=== PATIENT | female | born 1950 | race Caucasian/White ===

== ENCOUNTER 2016-08-12 10:00 | Emergency (ER) | payer MEDICARE, OTHER ==
[2016-08-12 10:34] LABS: BASOPHILS % 0.5 (0.0-1.5); EOSINOPHILS % 5.1 % (0.0-6.8); LYMPHOCYTES # 1.6 # k/uL (0.6-4.0); MEAN CORPUSCULAR HEMOGLOBIN 25.7 pg (28.0-34.0); MONOCYTES # 0.4 # k/uL (0.0-0.9); NEUTROPHILS # 4.3 # k/uL (1.4-7.7)
--- NOTE | 2016-08-12 10:34 | ED Physician Documentation ---
Lower Extremity Problem - HISTORIAN Historian: patient - HPI Stated Complaint: right lower extremity pain Chief Complaint: Lower Extremity Problem Location of Injury: R knee Timing: still present Recent Injury: No Quality: pain Associated Symptoms: denies: chest pain, shortness of breath Further Comments: yes (66 yo female presents with right posterior knee pain that started last night. Increased pain with ambulation. No recent injury. No swelling in leg. Sent by PCP for check. No chest pain. No SOA. No previous VTE. No recent surgeries or hospitalizations or long immobilizations) - ROS CONST: no problems MS/SKIN/LYMPH: leg pain (right posterior knee) GI/: none NERUO/PSYCH: denies: headache, difficulty walking, dizziness - PAST HX Past History: other (diabetes, osteoarthritis) PE Risk Factors: other (obese) Allergies/Adverse Reactions: Allergies Allergy/AdvReac Type Severity Reaction Status Date / Time doxycycline calcium AdvReac Unknown Rash Verified 05/25/16 16:34 [From Vibramycin] doxycycline hyclate AdvReac Unknown Rash Verified 05/25/16 16:34 [From Vibramycin] doxycycline monohydrate AdvReac Unknown Rash Verified 05/25/16 16:34 [From Vibramycin] Penicillins AdvReac Rash Verified 05/25/16 16:34 Home Medications: Ambulatory Orders Medication Instructions Recorded Meloxicam [Mobic] 7.5 mg PO DAILY PRN 05/25/16 Metformin HCl [Metformin HCl ER] 1,000 mg PO DAILY 05/25/16 gliPIZIDE [Glucotrol] 5 mg PO 0730 05/25/16 - SOCIAL HX Smoking History: non-smoker Alcohol Use: none Drug Use: none - FAMILY HX Family History: none - VITAL SIGNS Vital Signs: Vital Signs Temp Pulse Resp BP Pulse Ox 143/72 05/25/16 17:55 - REVIEWED ASSESSMENTS Nursing Assessment Reviewed: Yes Vitals Reviewed: Yes Progress - Progress Progress: d-dimer not elevated. Most likely etiology of pain is that of arthritis as patient says she has had this same issue in the past and has been recommended to have knee replacement but she does not want to do this. REcommend follow up with PCP ED Results Lab/Radiology - Lab Results Lab Results: Lab Results 08/12/16 08/12/16 08/12/16 10:25 10:25 10:25 WBC 6.80 K/ul K/ul (4.00-12.00) RBC 4.18 M/ul M/ul (3.90-5.20) Hgb 10.8 g/dL L g/dL (12.0-16.0) Hct 34.0 % L % (34.5-46.5) MCV 81.2 fl fl (80.0-100.0) MCH 25.7 pg L pg (28.0-34.0) MCHC 31.7 g/dL g/dL (30.0-36.0) RDW 14.1 % % (11.3-14.3) Plt Count 333 K/mm3 K/mm3 (130-400) Neut % (Auto) 62.8 % % (39.0-79.0) Lymph % (Auto) 24.2 % % (16.0-50.0) [place] % (Auto) 6.0 % % (0.0-11.0) Eos % (Auto) 5.1 % % (0.0-6.8) Baso % (Auto) 0.5 (0.0-1.5) Neut # 4.3 # k/uL # k/uL (1.4-7.7) Lymph # 1.6 # k/uL # k/uL (0.6-4.0) [place] # 0.4 # k/uL # k/uL (0.0-0.9) Eos # 0.4 # k/uL # k/uL (0.0-0.6) Baso # 0.0 # k/uL # k/uL (0.0-0.5) Reactive Lymphs % 1.3 % % (0.0-5.0) Reactive Lymphs # 0.1 # k/uL # k/uL (0.0-0.8) D-Dimer 458 ng/mL ng/mL (6.0-682) Sodium 136 mmol/L mmol/L (136-145) Potassium 3.5 mmol/L mmol/L (3.5-5.0) Chloride 103 mmol/L mmol/L (98-110) Carbon Dioxide 29 mmol/L mmol/L (20-32) BUN 19 mg/dL mg/dL (10-26) Creatinine 0.6 mg/dL mg/dL (0.4-1.5) Est GFR ( Amer) > 60 (60 - ) Est GFR (Non-Af Amer) > 60 (60 - ) Glucose 159 mg/dL H mg/dL (70-99) Calcium 9.2 mg/dL mg/dL (8.5-10.5) Total Bilirubin 0.3 mg/dL mg/dL (0.2-1.2) AST 22 U/L U/L (0-41) ALT 20 U/L U/L (0-45) Alkaline Phosphatase 45 U/L L U/L (46-116) Total Protein 6.9 g/dL g/dL (6.0-8.5) Albumin 4.2 g/dL g/dL (3.0-5.5) - Orders Orders: ED Orders Category Date Time Status CBC/PLATELET/DIFF Routine Lab 08/12/16 10:25 Completed CMP [CMP] Routine Lab 08/12/16 10:25 Completed D DIMER Stat Lab 08/12/16 10:25 Completed Lower Extremity Problem - EXAM General Appearance: no distress Hips: bilateral hip: non-tender, normal inspection, normal range of motion Legs: bilateral: non-tender, normal inspection, normal range of motion Knees: right: bone tenderness, pain, soft tissue tenderness, other (Negative Skip's sign), left: non-tender, normal range of motion, bilateral: normal inspection, no evidence of injury Neuro/Tendon: normal sensation, normal motor functions EENT: eye inspection normal, ENT inspection normal, LEXI CVS: reg rate & rhythm JOINT: joints nml, nml ROM, painful (painful to bear weight) NEURO/PSYCH: oriented X3, motor nml SKIN: warm/dry Discharge Clincal Impression: Osteoarthritis Qualifiers: Osteoarthritis location: knee Osteoarthritis type: primary Laterality: right Qualified Code(s): M17.11 - Unilateral primary osteoarthritis, right knee Additional Instructions: Follow up with your PCP in 3-5 days for continued care of your chronic medical needs Home Medications: Ambulatory Orders Meloxicam [Mobic] 7.5 mg PO DAILY PRN 05/25/16 Metformin HCl [Metformin HCl ER] 1,000 mg PO DAILY 05/25/16 gliPIZIDE [Glucotrol] 5 mg PO 0730 05/25/16 Condition: Good Disposition: HOME, SELF-CARE Decision to Admit: NO Decision Time: 11:22
[2016-08-12 10:51] LABS: eGFR (African) > 60; eGFR (Non-African) > 60
[2016-08-12 17:15] VITALS: BP 168/79
== END 2016-08-12 11:45 | disposition home or self-care (01) ==
LOC: ED 10:00
DX: M17.11 Unilateral primary osteoarthritis, right knee (principal)
CPT/HCPCS: 36415; 80053; 85025; 85379; 99282

== ENCOUNTER 2016-08-25 14:33 | Outpatient (CLI) | payer MEDICARE, OTHER ==
[2016-08-25 15:27] LABS: eGFR (African) > 60; eGFR (Non-African) > 60
== END 2016-08-25 14:35 ==
LOC: LAB 14:33
PROVIDERS: ATTEND Family Medicine
DX: E11.9 Type 2 diabetes mellitus without complications (principal)
CPT/HCPCS: 36415; 80053; 80061; 83036

== ENCOUNTER 2016-10-20 14:20 | Outpatient (CLI) | payer MEDICARE, OTHER ==
--- NOTE | 2016-10-21 18:37 | Diagnostic Imaging Report ---
JARAD SHEA [facility] [address] [facility] [address] [address] Report Submission Date: Oct 20, 2016 3:24:57 PM CDT Patient Study Name: YULI SALDANA Date: Oct 20, 2016 2:41:50 PM CDT Modality Type: CR Gender: F Description: SPINE : 46 Institution: [facility] Physician: JARAD SHEA Cervical spine 4 views Clinical history arm and neck pain Technique AP lateral open mouth and swimmer's Findings: The C1/C2 articulation shows degenerative arthritis but is otherwise within normal limits. There is disc space narrowing at all cervical levels. Posterior facet joint degenerative arthritis is present throughout the cervical spine. There is no prevertebral soft tissue swelling or evidence of fracture. Minimal anterior subluxation of C2 on C3 is present. The normal cervical curvature show straightening. Impression: Extensive cervical spondylosis. No acute cervical spine pathology Electronically signed on Oct 20, 2016 3:24:57 PM CDT by: Xavi MOYER
== END 2016-10-20 14:22 ==
LOC: RAD 14:20
PROVIDERS: ATTEND Family Medicine
DX: M54.2 Cervicalgia (principal)
CPT/HCPCS: 72040

== ENCOUNTER 2016-12-22 15:48 | Outpatient (CLI) | payer OTHER | END 2016-12-22 15:50 | LOC: LAB 15:48 | PROVIDERS: ATTEND Family Medicine | DX: E11.9 Type 2 diabetes mellitus without complications (principal) | CPT/HCPCS: 83036 ==

== ENCOUNTER 2017-01-03 12:18 | Outpatient (CLI) | payer OTHER ==
--- NOTE | 2017-01-04 10:08 | HISTORY AND PHYSICAL REPORT ---
REFERRING PHYSICIAN: Dr. Polly Persaud Dear Polly: HISTORY OF PRESENT ILLNESS: I had the opportunity of seeing Sabrina Santos today as an outpatient in clinic. As you are aware, Sabrina is a very nice 66-year-old white female who awoke approximately 4 months ago with neck and left-sided arm pain. She complains of pain in the shoulder and parascapular area with pain, numbness, and tingling down the left arm. She says that she has been unable to use the left arm because any use of the arm hurts. She also complains of some right- sided shoulder pain; however, the left is much worse and she is clearly having some shoulder dysfunction as well. She complains of numbness and tingling from the upper arm to the forearm, wrist, and hand. She says the left arm is weak. She denies pain in the right arm or lower extremities. She says she has chronic shoulder pain as well. She denies any incontinence of bowel or bladder. She denies symptoms of neurogenic claudication. MRI done in the open scanner at [facility] reveals a moderate degree of spinal stenosis at C4-C5 and C5-C6 and C6-C7 and multi-level degenerative disk disease. PAST MEDICAL HISTORY: 1. Nose or sinus problems. 2. Multiple TIAs. 3. An irregular heartbeat. 4. History of hepatitis C that patient reports is currently in remission. 5. Diabetes. PAST SURGICAL HISTORY: 1. Gallbladder surgery. 2. Complete hysterectomy. CURRENT MEDICATIONS: 1. Triamcinolone acetonide cream b.i.d. 2. Gabapentin 300 mg at bedtime. 3. Diclofenac 50 mg t.i.d. 4. Flonase 50 mcg spray, 2 sprays in each nostril. 5. Glipizide 5 mg b.i.d. 6. Metformin 500 mg b.i.d. ALLERGIES: 1. Penicillin. 2. Vibramycin. SOCIAL HISTORY: Patient quit smoking in 2016. She denies alcohol use. She reports some recreational drug use of marijuana in 1965 and none since then. Patient is . She has 5 children. She lives alone. She worked as a housewife. She went to school through the 12th grade. She is not currently employed. FAMILY HISTORY: The patient's father suffered from a stroke. The patient's mother had tuberculosis. Patient had a sibling with diabetes and cancer. REVIEW OF SYSTEMS: Positive for weight gain, night sweats, irregular heartbeats, swelling of the hands and feet, shortness of breath, and diarrhea. TREATMENTS FOR THE CURRENT PAIN PROBLEM: Patient denies any kind of surgery. She does report injections to the low back in the past. She did do physical therapy which did not give her any help. She denies chiropractic or osteopathic manipulation, TENS unit, biofeedback, acupuncture, and massage therapy. PHYSICAL EXAMINATION: General: This is a well-nourished, moderately obese white female in no apparent distress. Vital Signs: BP: 142/70, P: 68, R: 20, oxygen saturation is 98% on room air. General: The patient is well nourished, well developed, and in no apparent distress. Awake, alert, and oriented. HEENT: Pupils are equal, round, and reactive to light and accommodation. Extraocular movements intact. No facial droop. Neck: There is full range of motion of the cervical spine. No evidence of adenopathy. Thyroid is nontender, no enlarged. Carotids are without bruits. Chest: Clear to auscultation bilaterally. Normal. Chest excursion. Heart: Regular rate and rhythm without murmur. Abdomen: Benign. Normoactive bowel sounds. Motor/sensory: Intact in the upper and lower extremities. Moves all extremities freely. Back: There are normal cervical, thoracic and lumbar curvatures. There are negative sacroiliac joint findings bilaterally. No evidence of pain or tenderness over the facet joints. Negative piriformis bilaterally. Negative straight leg raise. No evidence of dermatomal weakness or numbness in the lower extremities. Bilateral negative femoral nerve stretch. Patellar tendons are 2+ and equal bilaterally. ASSESSMENT: 1. C4-C5, C5-C6, and C6-C7 cervical spinal stenosis. Plan for a left cervical epidural steroid injection today under fluoroscopy. 2. Likely left-sided rotator cuff tear with symptoms localized in the supraspinatus tendon. We will order an MRI at [facility] of the left rotator cuff. 3. I will have her follow up with me next month. Dr. Persaud, thank you very much for allowing me to take part in the care of this nice lady. cc: Dr. Polly MOYER
--- NOTE | 2017-01-04 10:35 | CERVICAL ESI WITH FLUORO ---
PROCEDURE PERFORMED: C6-C7 epidural steroid injection with fluoroscopic guidance. DESCRIPTION OF PROCEDURE: The risks and benefits were discussed with the patient, including the risks of infection, bleeding, nerve injury including paralysis, and headache. Furthermore , I discussed the risk of steroid exposure causing hyperglycemia, hypertension, osteoporosis, or increased infectious risks. The patient understood these risks and agreed to proceed. Consent was obtained. The patient was placed prone on the fluoroscopy table with a pillow underneath the chest to afford slight anterior flexion of the cervical spine. The patient' s back of the neck was cleaned and a sterile drape was applied. A 20-gauge thin-wall Tuohy epidural needle was inserted with a left paramedian approach at the C6-C7 interspace level. The position of the needle was verified with AP and lateral fluoroscopic views. The needle was advanced with a normal saline uoio-la-juecfuwfsp technique until [id number] was obtained. On obtaining ccsu-la-whauejxzes to normal saline it was verified that there was no aspiration of CSF or blood. At this point, Omnipaque 240 myelogram dye was injected into the cervical epidural space. It was verified with fluoroscopic views that the dye was located within the epidural space in the desired distribution. Triamcinolone acetate and 1% lidocaine was injected into the cervical epidural space. The stylet was replaced in the needle and the needle was removed from the neck. The neck was cleaned and a bandage was applied over the injection site. The patient tolerated the procedure well and was monitored afterwards for a total of 20 minutes during which time the vital signs remained stable and no adverse sequelae were experienced. The patient was discharged home in good condition. Prior to discharge the patient was given discharge instructions. ASSESSMENT: 1. C4-C5, C5-C6, C6-C7 stenosis. 2. Left rotator cuff pain. 3. Left upper extremity radiculitis. PLAN: We will obtain an MRI study of the left shoulder as well, as I believe she has a supraspinatus tear. FOLLOW UP: Return to Clinic if problems develop or worsen. cc: Dr. Polly MOYER
== END 2017-01-03 12:20 ==
LOC: OUT 12:18
PROVIDERS: ATTEND Anesthesiology Pain Medicine
DX: M48.02 Spinal stenosis, cervical region (principal); M25.512 Pain in left shoulder; M54.10 Radiculopathy, site unspecified
CPT/HCPCS: 99214; G0463; J3301; Q9966

== ENCOUNTER 2017-01-19 15:53 | Outpatient (CLI) | payer OTHER ==
[2017-01-19 16:27] LABS: BASOPHILS % 0.4 (0.0-1.5); EOSINOPHILS % 3.7 % (0.0-6.8); MEAN CORPUSCULAR HEMOGLOBIN 25.9 pg (28.0-34.0); MEAN CORPUSCULAR VOLUME 82.6 fl (80.0-100.0); MONOCYTES % 5.1 % (0.0-11.0); NEUTROPHILS # 7.1 # k/uL (1.4-7.7)
[2017-01-19 16:34] LABS: eGFR (African) > 60; eGFR (Non-African) > 60
== END 2017-01-19 15:54 ==
LOC: LAB 15:53
PROVIDERS: ATTEND Family Medicine
DX: R60.0 Localized edema (principal); N39.46 Mixed incontinence
CPT/HCPCS: 36415; 80053; 83880; 84443; 85025; 87086

== ENCOUNTER 2017-02-01 13:10 | Outpatient (CLI) | payer OTHER | END 2017-02-01 13:11 | LOC: CARD 13:10 | PROVIDERS: ATTEND Internal Medicine Cardiovascular Disease | DX: R07.9 Chest pain, unspecified (principal) ==

== ENCOUNTER 2017-02-04 09:53 | Outpatient (CLI) | payer OTHER ==
[~2017-02-04 09:53] MED LIST: BUPIVACAINE HCL/PF 2.5 MG/ML 10ML VIAL IV ONE; TRIAMCINOLONE ACETONID 40MG/ML VIAL ONE
--- NOTE | 2017-02-07 10:09 | SHOULDER JOINT INJECT FLOURO ---
REFERRING PHYSICIAN: Dr. Polly Persaud SUBJECTIVE: I had the opportunity of following up with Sabrina Santos today as an outpatient at [facility]. This is a delightful 66-year- old white female who I saw for cervicalgia and neck pain and left parascapular pain, numbness and tingling down the left arm. She has had complete relief of her neck and upper extremity pain and parascapular symptoms following an injection, except she continues with left shoulder pain. I thought at that point when I examined her that she had a rotator cuff tear and her MRI comes back positive for a partial tear of her supraspinatus tendon. She is also complaining not of just shoulder pain but symptoms of back and bilateral lower extremity pain, symptoms consistent with neurogenic claudication and spinal stenosis. She has had previous imaging many years ago but she is not sure where this was done and at this point, she is complaining of bilateral lower extremity pain and symptoms consistent with spinal stenosis. PLAN: At this point I am going to place a palliative left shoulder joint injection and have her scheduled for a follow up with me next month and follow up with Dr. Rolle regarding the rotator cuff tear. We will consider an lumbar epidural steroid injection (LESI) of her lumbar spine next month at [facility]. PROCEDURE: Left shoulder joint injection with fluoroscopic guidance. DESCRIPTION OF PROCEDURE: The risks and benefits of the injection were discussed with the patient, including the risks of infection, bleeding, and nerve injury. Furthermore, I discussed the risk of steroid exposure causing hyperglycemia, hypertension, osteoporosis, or increased infectious risks. The patient understood these risks and agreed to proceed. Consent was obtained. The patient was placed in the prone position on the fluoroscopy table. The skin overlying the posterior shoulder was cleaned. An AP fluoroscopic view of the left shoulder joint was obtained. A 23-gauge, 3 inch Quickie-tip spinal needle was inserted under direct fluoroscopic guidance from a posterior approach until the needle contacted the head of the humerus at the shoulder joint. It was verified that there was no aspiration of fluid or blood. Triamcinolone acetate diluted in 0.25% bupivacaine was subsequently injected. The stylette was replaced in the needle and the needle was removed from the shoulder joint. The skin was cleaned and a bandage was applied over the injection site. ASSESSMENT: FOLLOW UP: cc: Dr. Polly MOYER
== END 2017-02-04 09:54 ==
LOC: OUT 09:53
PROVIDERS: ATTEND Anesthesiology Pain Medicine
DX: M75.112 Incomplete rotator cuff tear or rupture of left shoulder, not specified as traumatic (principal); M48.00 Spinal stenosis, site unspecified; M25.512 Pain in left shoulder; R20.2 Paresthesia of skin; M54.2 Cervicalgia
CPT/HCPCS: 20611; 99213; G0463; J3301; J3490

== ENCOUNTER → 2017-03-10 | Outpatient (CLI) | payer OTHER ==
[2017-03-10 15:11] LABS: eGFR (African) > 60; eGFR (Non-African) > 60
== END ==
LOC: LAB 14:05
PROVIDERS: ATTEND Family Medicine
DX: R10.11 Right upper quadrant pain (principal); Z86.19 Personal history of other infectious and parasitic diseases; M54.5 Low back pain
CPT/HCPCS: 36415; 80053; 87086; 87186; 87522

== ENCOUNTER 2017-03-15 12:15 | Outpatient (CLI) | payer OTHER | END 2017-03-15 12:16 | LOC: CARD 12:15 | PROVIDERS: ATTEND Internal Medicine Cardiovascular Disease | DX: I50.9 Heart failure, unspecified (principal); E11.9 Type 2 diabetes mellitus without complications | CPT/HCPCS: 93005; G0463 ==

== ENCOUNTER 2017-04-19 12:06 | Outpatient (CLI) | payer OTHER | END 2017-04-19 12:07 | LOC: CARD 12:06 | PROVIDERS: ATTEND Internal Medicine Cardiovascular Disease | DX: I50.9 Heart failure, unspecified (principal); E11.9 Type 2 diabetes mellitus without complications; Z87.891 Personal history of nicotine dependence; E66.9 Obesity, unspecified | CPT/HCPCS: G0463 ==

== ENCOUNTER 2017-06-02 11:48 | Emergency (ER) | payer OTHER ==
--- NOTE | 2017-06-02 11:53 | ED Physician Documentation ---
Shoulder Injury/Pain - HISTORIAN Historian: patient - HPI Stated Complaint: left shoulder pain Chief Complaint: Shoulder Injury/ Pain Onset: other (chronic was told she had a rotator cuff issue she did not follow up but she is wanting something for pain today . She is not taking her everyday meds due to cost ) Where: home Severity: moderate Pain: continueous Context: other (no injury ) Associated Symptoms: weakness, unable to move shoulder Further Comments: no - ROS CVS/RESP: none - PAST HX Allergies/Adverse Reactions: Allergies Allergy/AdvReac Type Severity Reaction Status Date / Time gabapentin [From Neurontin] Allergy Verified 06/02/17 12:08 sulfamethoxazole Allergy Verified 06/02/17 12:08 [From Bactrim] trimethoprim [From Bactrim] Allergy Verified 06/02/17 12:08 doxycycline calcium AdvReac Unknown Rash Verified 06/02/17 12:08 [From Vibramycin] doxycycline hyclate AdvReac Unknown Rash Verified 06/02/17 12:08 [From Vibramycin] doxycycline monohydrate AdvReac Unknown Rash Verified 06/02/17 12:08 [From Vibramycin] Penicillins AdvReac Rash Verified 06/02/17 12:08 Home Medications: Ambulatory Orders Medication Instructions Recorded Meloxicam [Mobic] 7.5 mg PO DAILY PRN 05/25/16 Metformin HCl [Metformin HCl ER] 1,000 mg PO DAILY 05/25/16 gliPIZIDE [Glucotrol] 5 mg PO 0730 05/25/16 Cyclobenzaprine HCl [Flexeril] 10 mg PO BID PRN #30 tablet 06/02/17 Meloxicam [Mobic] 7.5 mg PO D PRN #14 tablet 06/02/17 - VITAL SIGNS Vital Signs: Vital Signs Temp Pulse Resp BP Pulse Ox 97.7 F 90 20 139/60 95 06/02/17 11:48 06/02/17 13:19 06/02/17 13:19 06/02/17 11:48 06/02/17 13:19 ED Results Lab/Radiology - Radiology Radiology Impressions: Examination: Plain film shoulder History: Discomfort Comparison exams: None provided Findings: 3 views of the shoulder demonstrate normal cortical margins. No evidence for fracture or dislocation. Acromioclavicular joint degenerative changes. No soft tissue abnormality Impression: Acromioclavicular joint degenerative changes. No acute osseous process. Electronically signed on Jun 02, 2017 12:44:51 PM [facility] by: Ry Rose - Orders Orders: ED Orders Category Date Time Status Sling to Affected Extremity 1T Care 06/02/17 12:53 Active SHOULDER 2 VIEWS OR MORE [RAD] Stat Exams 06/02/17 12:20 Taken Ketorolac Tromethamine [Toradol] Med 06/02/17 12:21 Discontinued 60 mg IM NOW ONE methylPREDNISolone ACETATE [Depo-Medrol] Med 06/02/17 12:21 Discontinued 40 mg IM NOW ONE Discharge Clincal Impression: Shoulder pain Qualifiers: Chronicity: chronic Laterality: left Qualified Code(s): M25.512 - Pain in left shoulder Prescriptions: Cyclobenzaprine HCl [Flexeril] 10 mg PO BID PRN #30 tablet PRN Reason: Pain Or Temperature > 101 Meloxicam [Mobic] 7.5 mg PO D PRN #14 tablet PRN Reason: Pain Or Temperature > 101 Referrals: Polly Persaud MD [Primary Care Provider] - 2 Days Condition: Stable Disposition: 01 HOME, SELF-CARE Decision to Admit: NO Date of Decison to Admit: 06/02/17 Decision Time: 12:52
[2017-06-02 12:07] VITALS: BP 139/60
[2017-06-02] MEDS: methylPREDNISolone ACETATE 40 MG/ML VIAL IM ONE (12:44)
[2017-06-02] MEDS: KETOROLAC TROMETHAMINE 60 MG/2 ML VIAL IM ONE (12:45)
--- NOTE | 2017-06-02 14:34 | Diagnostic Imaging Report ---
HSLOMO JAMES [facility] [address] [facility] [address] Report Submission Date: Jun 02, 2017 12:44:51 PM ENVIRONMENTAL SCIENCE TECHNICIAN Patient Study Name: YULI SALDANA Date: Jun 02, 2017 12:30:19 PM ENVIRONMENTAL SCIENCE TECHNICIAN Modality Type: CR Gender: F Description: SHOULDER : 46 Institution: [facility] Physician: SHLOMO JAMES Examination: Plain film shoulder History: Discomfort Comparison exams: None provided Findings: 3 views of the shoulder demonstrate normal cortical margins. No evidence for fracture or dislocation. Acromioclavicular joint degenerative changes. No soft tissue abnormality Impression: Acromioclavicular joint degenerative changes. No acute osseous process. Electronically signed on Jun 02, 2017 12:44:51 PM ENVIRONMENTAL SCIENCE TECHNICIAN by: yR MOYER
== END 2017-06-02 13:07 | disposition home or self-care (01) ==
LOC: ED 11:48
DX: M25.512 Pain in left shoulder (principal)
CPT/HCPCS: 73030; 96372; 99283; J1030; J1885

== ENCOUNTER 2019-03-29 15:35 | Emergency (ER) | payer OTHER ==
[2019-03-29 15:49] VITALS: BP 137/66
--- NOTE | 2019-03-29 15:57 | ED Physician Documentation ---
Foot Injury - HISTORIAN Historian: patient - HPI Stated Complaint: L 3rd Toe pain Chief Complaint: Foot Injury Onset: days ago (3) Where: home Severity: moderate Context: other (kicked a metal grate ) Associated Symptoms:: other (she is concerned there is a piece of metal in her toe ) Further Comments: yes (She had kicked or scrapped a metal grate and she had a small sore and then she notes a small blacked color area and there was a "puss pocket I cut and now I feel metal in the sore" No increasing pain. No fever. She is not sure of last Tdap) - ROS CONST: no problems CVS/RESP: none - PAST HX Past History: diabetes Type 2 (she does not take her meds due to diarrhea ) Immunizations: UTD Allergies/Adverse Reactions: Allergies Allergy/AdvReac Type Severity Reaction Status Date / Time gabapentin [From Neurontin] Allergy Verified 03/29/19 15:49 sulfamethoxazole Allergy Verified 03/29/19 15:49 [From Bactrim] trimethoprim [From Bactrim] Allergy Verified 03/29/19 15:49 doxycycline calcium AdvReac Unknown Rash Verified 03/29/19 15:49 [From Vibramycin] doxycycline hyclate AdvReac Unknown Rash Verified 03/29/19 15:49 [From Vibramycin] doxycycline monohydrate AdvReac Unknown Rash Verified 03/29/19 15:49 [From Vibramycin] Penicillins AdvReac Rash Verified 03/29/19 15:49 - SOCIAL HX Smoking History: non-smoker Alcohol Use: none Drug Use: none - FAMILY HX Family History: none - VITAL SIGNS Vital Signs: Vital Signs Temp Pulse Resp BP Pulse Ox 94 H 16 137/66 98 03/29/19 15:40 03/29/19 15:40 03/29/19 15:40 03/29/19 15:40 - REVIEWED ASSESSMENTS Nursing Assessment Reviewed: Yes Vitals Reviewed: Yes Progress - Progress Progress: after discussion she asks what she can do about her hip and low back pain she has had "for years" wanting to know if we do pain pills or pain shots she is out and has not had a pain shot due to changing location. She denies any new injury or pain but is wanting to see someone at least by tomorrow DG 1724: discussed results and plan. Offer to pain referral due to chronic pain - she is not sure she will still be living here DG ED Results Lab/Radiology - Radiology Radiology Impressions: Exam: Left foot. History: 2Nd toe pain after injury. AP, lateral and oblique view of the left foot are submitted. 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 No signs of acute fracture or dislocation there are identified. Degenerate changes at the interphalangeal joints are noted. Spurs off the plantar and posterior surfaces of the calcaneus are noted. No soft tissue abnormality is identified. Impression: Degenerative changes. Heel spurs. No acute fracture. Electronically signed on Mar 29, 2019 4:31:17 PM CDT by: Vasu Spencer Foot Injury Physical Exam - Physical Exam General Appearance: no acute distress Foot: right foot: normal inspection, no evidence of injury, left foot: pain (3rd toe left foot ), other (small crusted area on left third toe with no active drainage or redness ), bilateral foot: non-tender, normal range of motion, N/A: soft tissue tenderness, swelling Gait: normal Neuro: sensation nml Vascular: no vascular compromise Tendons: tendon function nml Leg/Knee/Thigh: uninjured above ankle Skin: intact, warm Head/ENT: nml inspection Neck/Back: nml inspection Resp/CVS: chest non-tender Abdomen: non-tender Discharge Clincal Impression: Cellulitis of left toe Referrals: Primary Doctor,No [Primary Care Provider] - 2 Days Comments: 1. Keflex 500 mg take 1 by mouth twice daily x 10 days 2. Soak in water and soap 3. Keep area clean 4. Get with PCP and re start diabetes meds 5. Check your feet frequently 6. Follow up with PCP IN 2 days 7. Referral for chronic pain 8. Return to ER for any increasing concerns Condition: Stable Disposition: 01 HOME, SELF-CARE Decision to Admit: NO Date of Decison to Admit: 03/29/19 Decision Time: 17:30
[2019-03-29] MEDS ORDERED: DIPH,PERTUSS(ACELL),TET VAC/PF 0.5 ML DISP.SYRIN IM ONE (16:42)
[2019-03-29] MEDS: DIPH,PERTUSS(ACELL),TET VAC/PF 0.5 ML DISP.SYRIN IM ONE (16:52)
--- NOTE | 2019-03-30 10:42 | Diagnostic Imaging Report ---
SHLOMO JAMES [facility] [address] [facility] [address] [address] Report Submission Date: Mar 29, 2019 4:31:17 PM CDT Patient Study Name: YULI SALDANA Date: Mar 29, 2019 3:55:22 PM CDT Modality Type: DX Gender: F Description: FOOT 3 VIEWS OR MORE : 46 Institution: [facility] Physician: SHLOMO JAMES Exam: Left foot. History: 2Nd toe pain after injury. AP, lateral and oblique view of the left foot are submitted. 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 No signs of acute fracture or dislocation there are identified. Degenerate changes at the interphalangeal joints are noted. Spurs off the plantar and posterior surfaces of the calcaneus are noted. No soft tissue abnormality is identified. Impression: Degenerative changes. Heel spurs. No acute fracture. Electronically signed on Mar 29, 2019 4:31:17 PM CDT by: Vasu MOYER
== END 2019-03-29 17:31 | disposition home or self-care (01) ==
LOC: ED 15:35
DX: L03.032 Cellulitis of left toe (principal)
CPT/HCPCS: 73630; 90715; 99284; J7030; 90471

== ENCOUNTER 2019-05-02 14:22 | Emergency (ER) | payer OTHER ==
[2019-05-10 12:06] LABS: APPEARANCE,URINE CLOUDY (CLEAR); COLOR,URINE YELLOW (YELLOW); OCCULT BLOOD,URINE 1+ (NEGATIVE); UROBILINOGEN URINE 0.2 Eu (0.2-1.0)
== END 2019-05-02 15:22 ==
LOC: ED 14:22
DX: B37.2 Candidiasis of skin and nail (principal)
CPT/HCPCS: 81002; 87086; 99283

== ENCOUNTER 2019-05-08 10:13 | Outpatient (CLI) | payer OTHER ==
--- NOTE | 2019-05-08 13:29 | Diagnostic Imaging Report ---
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 Right lateral femo rotibial joint space narrowing is worse than medial femorotibial joint space narrowing. Left medial femorotibial ab nt space narrowingis worse than the lateral femorotibial joint space narrowing. There a spurring off the anter ior superior patella bilaterally. There is no acute fracture. Impression: Bilateral osteoarthritis Read by: Dr. Mario Alberto Reyes Transcribed by: Transcribed Date: Electronically signed by: Dr. Mario Alberto Reyes Date signed: 05/08/2019 1:28:30 PM
--- NOTE | 2019-05-11 09:19 | CONSULTATION REPORT ---
DATE OF VISIT: 05/08/2019 CHIEF COMPLAINT: Bilateral knee pain. HISTORY OF PRESENT ILLNESS: Ms. Santos is here for evaluation of bilateral knee pain. The patient reports that her pain has been progressive in nature. She was seeing an orthopedist, Dr. Cisneros in [place], [place] who did what sounds like intraarticular joint injection that did not improve her pain symptoms whatsoever. Per the patient report, he also advised that she needed total knee replacements, however, her diabetes needed to be in better control before he would proceed. Her last injections were spring to mid-summer of 2017. She characterizes her knee pain as constant aching to sharp shooting pain in the anterior and posterior aspects of her knees. She does report knee swelling and instability related to the pain. She ambulates with a cane. Her pain is worse with standing, walking, sitting and weather changes. Her pain improves with a heating pad and rdhy-hcy-cuyjlis ibuprofen. She previously had what was sounds like single upright Store Worker braces that improved her pain symptoms. Most recently, however, she had double upright braces and they were too long for her thighs and caused her discomfort, therefore she quit using them and got rid of them. PAST MEDICAL HISTORY: Anemia, arthritis, back pain, type 2 diabetes mellitus, [place] in 2011 with left ventricular dysfunction. History of hepatitis, unclear what type, irritable bowel syndrome, sleep apnea with CPAP, TIAs, goiter. PAST SURGICAL HISTORY: Bilateral tubal ligation in 1981, cholecystectomy in 1990 and a complete hysterectomy in 2005. SOCIAL HISTORY: Marital status is . Occupation is retired. Number of pregnancies is six, live births is five and one miscarriage. Past smoking history, however, the patient admits today of smoking three or four cigarettes per day. ETOH is past, last use 2016. Recreational drug use is past use, last use was 1967. FAMILY HISTORY: A sibling with cancer and diabetes, father with CVA, an aunt with diabetes, hypertension and obesity. DRUG ALLERGIES: Glipizide. CURRENT MEDICATIONS: The patient has stopped all of her current medications including her metformin for her diabetes, as it was causing her too much diarrhea. REVIEW OF SYSTEMS: A complete 14-point reviews of systems was completed and was positive for weight gain, hearing loss, ringing in the ears, nasal congestion, sleep apnea with the CPAP, diarrhea, stomach pain, TIA, use of a cane for ambulation and diabetes type 2 as well as joint pain, low back pain. OBJECTIVE: General: This is an obese female patient presenting in no acute distress. Vital Signs: The patient is 5 feet 4 inches tall, weighs 248 pounds with a BMI of 42.6. Pulse is 84, respiratory rate is 20, blood pressure is 157/100 with an SaO2 of 97% on room air. She is rating her pain in her knees a 7 to 8/10 today. Psych: She is alert and oriented x3. She is calm, pleasant and cooperative. HEENT: She is normocephalic and atraumatic. Pupils are equal and round without miosis. Sclerae clear. Trachea is midline. No lymphadenopathy or thyromegaly. CV: Normal S1, S2. Regular rate and rhythm. No gallops, rubs, or murmurs. Pulmonary: Nonlabored respirations at rest. Clear to auscultation throughout, slightly diminished in posterior bases. GI: Abdomen is soft, round, and obese, nondistended and nontender with bowel sounds present in all four quadrants. : Deferred. Musculoskeletal: The patient has generalized tenderness to palpation of bilateral knees. There is no obvious effusion or swelling on today's exam. Anterior drawer is stable. Varus and valgus laxity is noted on the left. Station is normal. Gait is antalgic with a quad cane. Neurologic: Cranial nerves II through XII are grossly intact. ASSESSMENT: 1. Right knee pain. 2. Left knee pain. PLAN: 1. I have ordered an x-ray series of the right knee and the left knee with sunrise views today. I am going to order the patient a left knee single upright professional services manager brace with OMS. 2. The patient is to follow up in one month or sooner if needed. She will have seen Dr. Persaud at that point in time and hopefully will have had her yearly fasting labs done so we can see where her hemoglobin A1c is. I have encouraged the patient to work on a healthy lifestyle, diet and exercise, including weight loss, as if we do decide to do a surgical total knee replacement, the patient's BMI will need to be less than 40 and is at 42.6 today. The patient will need to at least lose 18 pounds to be less than 40 on her BMI. The patient did verbalize understanding and agrees with the current treatment plan. GREG Romeourse Practitioner /[employer] [id number] jrd cc: DO COMFORT Nieto
== END 2019-05-08 11:13 ==
LOC: OUT 10:13
PROVIDERS: ATTEND Nurse Practitioner Adult Health
DX: M25.561 Pain in right knee (principal); M25.562 Pain in left knee
CPT/HCPCS: 73562; 99214; G0463

== ENCOUNTER 2019-05-28 13:22 | Outpatient (CLI) | payer OTHER ==
[2019-05-28 13:51] LABS: BASOPHILS % 0.6 % (0.0-1.5); NEUTROPHILS # 6.2 # k/uL (1.4-7.7)
[2019-05-28 14:12] LABS: eGFR (Non-African) > 60
[2019-05-28 14:13] LABS: A1C 11.9 % (<5.7); HDL 39 mg/dL (>40)
== END 2019-05-28 13:27 ==
LOC: LAB 13:22
PROVIDERS: ATTEND Family Medicine
DX: D50.9 Iron deficiency anemia, unspecified (principal); E11.9 Type 2 diabetes mellitus without complications
CPT/HCPCS: 36415; 80053; 80061; 83036; 85025

== ENCOUNTER 2019-06-19 14:32 | Outpatient (CLI) | payer OTHER ==
--- NOTE | 2019-07-04 08:06 | OP Clinic Progress Note ---
DATE OF VISIT: 06/19/2019 CHIEF COMPLAINT: Bilateral knee pain. HPI: Ms. Santos is a 69-year-old female here for followup bilateral knee pain. The patient reports that her pain has been progressive in nature. She was seeing an orthopedist, Dr. Cisneros in [place], [place] who did what sounds like intraarticular joint injections that did not improve her pain symptoms whatsoever. Per the patient report, he also advised that she needed total knee replacements, however diabetes needed to be better controlled before he would proceed. Her last injections were in the spring to midsummer 2017. She characterizes her knee pain as constant, aching to sharp shooting pain in the anterior and posterior aspects of her knees. She does report knee swelling and instability related to pain. She ambulates with a cane. Her pain is worse with standing, walking, sitting and weather changes. Her pain improves with a heating pad and [id number] ibuprofen. I did order the patient a knee brace at last appointment, however, she has not received that at this time. I will follow this up today. The patient did follow up with Dr. Persaud and her hemoglobin A1c on 05/28/2019 was 11.9. I discussed in length that she will need to work on better diabetic control, weight loss and smoking cessation prior to total knee replacement. IMAGING REVIEWED: I did order bilateral knee imaging at last visit and this was performed on 05/08/2019 here in [place]. Finding: Tricompartmental osteoarthritis is present bilaterally with joint space narrowing. Right lateral femorotibial joint space narrowing is worse than medial femorotibial joint space narrowing. Left medial femorotibial joint space narrowing is worse than lateral femorotibial joint space narrowing. There is spurring of the anterior superior patella bilaterally. There are no acute fractures. PFSH is reviewed and unchanged. REVIEW OF SYSTEMS: A complete 14-point review of systems was completed and positive for weight gain, hearing loss, ringing in ears, nasal congestion, sleep apnea with CPAP, diarrhea, stomach pain, use of a cane for ambulation, diabetes type 2, as well as joint pain specifically knee and low back pain. PHYSICAL EXAMINATION: General: In general, this is an obese female patient presenting in no acute distress. Vital Signs: The patient is 5 feet 4 inches tall. Weight is 250 pounds today which is up two pounds from last appointment. Her BMI is greater than 40 at this point in time. Temperature is 98.1. Pulse 70. Respiratory rate 20. Blood pressure 140/82 with an SaO2 of 97% on room air. Pain is rated 7-8/10. Psych: Alert and oriented x3. She is calm, pleasant and cooperative. HEENT: Normocephalic and atraumatic. Pupils are equal and round without miosis. Sclerae are clear. Musculoskeletal: The patient has generalized tenderness to palpation bilateral knees. There are no obvious effusions or swelling on todays exam. Anterior drawer is stable. Varus and valgus laxity is noted on the left. Station is normal. Gait is antalgic with a quad cane. Neuro: Cranial nerves II-XII are grossly intact. ASSESSMENT: 1. Left knee pain. 2. Left knee DJD, tricompartmental osteoarthritis. 3. Right knee pain. 4. Right knee DJD, tricompartmental osteoarthritis. 5. Diabetes type 2 uncontrolled. Last hemoglobin A1c 11.9 on 05/28/2019. 6. Obesity. BMI greater than 40. 7. Tobacco use disorder. PLAN: 1. I am going to order bilateral genicular nerve blocks with Dr. Ahmadi. This will be the first set. 2. I have re[place] the [place] knee [place] industrial health and safety professor [place] [facility] [place] is to get this set up. 3. She is to continue working on weight loss. 4. She is to continue to work on smoking cessation. 5. She is to continue to work on DM control with Dr. Persaud. 6. 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 The patient did verbalize understanding and agreed to the current treatment plan. Caty Glez NP Nurse Practitioner ARELI/bebe JOB#: [id number] cc: Polly Persaud MD [facility] HOSPITALFernando
== END 2019-06-19 15:32 ==
LOC: OUT 14:32
PROVIDERS: ATTEND Nurse Practitioner Adult Health
DX: M19.071 Primary osteoarthritis, right ankle and foot (principal); M19.072 Primary osteoarthritis, left ankle and foot; E11.9 Type 2 diabetes mellitus without complications; F17.200 Nicotine dependence, unspecified, uncomplicated; E66.9 Obesity, unspecified; Z68.41 Body mass index [BMI] 40.0-44.9, adult
CPT/HCPCS: 99213; G0463